=== PATIENT | female | born 1970 | race Caucasian/White ===

== ENCOUNTER 2020-06-24 09:51 | Outpatient (CLI) | payer BC, SELFPAY ==
--- NOTE | ~2020-06-24 | MM_ITS ---
EXAMINATION: MM screening sabas BI w oscar HISTORY: Screening TECHNIQUE: Craniocaudal and mediolateral oblique 3-D tomosynthesis images were obtained and synthetic 2-D images were generated. CAD analysis was submitted and interpreted. COMPARISON: Comparison to multiple prior studies sequentially, with oldest reviewed study dated 05/25. BREAST PARENCHYMAL COMPOSITION: The breasts are extremely dense, which lowers the sensitivity of mamm ography. FINDINGS: There is no evidence of suspicious mass, calcification, or architectural distortion to sugg est malignancy in either breast. There has been no suspicious interval change. IMPRESSION: 1. No mammographic evidence of malignancy. 2. Recommend routine screening mammography in one year. BI-RADS Category 1: Negative Reviewed, dictated and finalized at location A.
== END 2020-06-24 09:52 | disposition home or self-care (01) ==
PROVIDERS: PCP Family Medicine; Visit Provider Family Medicine
DX: Z12.31 Encounter for screening mammogram for malignant neoplasm of breast (principal)
CPT/HCPCS: 77063; 77067

== ENCOUNTER 2021-07-03 00:24 | Day surgery (SDC) | payer BC, SELFPAY ==
[2021-06-18 12:37] VITALS: BMI 19.5
[2021-07-03 08:05] VITALS: BP 123/90; PULSE 94; RESP 16; TEMP 36.1; O2SAT 100; BMI 18.9
[2021-07-03] MEDS: LACTATED RINGERS 1,000 ML 150 ML IV CONT (08:31)
--- NOTE | 2021-07-03 08:34 | P.CONGI_ITS ---
Assessment and Plan Assessment and plan (1) Encounter for screening colonoscopy: Code(s): Z12.11 - Encounter for screening for malignant neoplasm of colon Status: Acute Assessment and Plan: Patient presents for neoplasia screening colonoscopy. Appears to be at average risk for colon polyps. GI Consult Note Consult date/time: 07/03/21 08:34 Reason for consult: Neoplasia screening HPI: Beverley Domingo is a 51 year old female presents for screening colonoscopy. Patient's current weight appetite and bowel movements are normal. She denies abdominal pain. Patient has had no bleeding. Family history is noncontributory. Patient presents today for neoplasia screening colonoscopy. Review of Systems Review of Systems: Review of systems noncontributory. [facility] Family History Family History Father Diabetes mellitus Family history of hypercholesterolemia Hypertension Mother Diabetes mellitus Family history of glaucoma Hypertension Other Family history of cardiovascular disease Social History Social History Second hand tobacco smoke exposure: No Alcohol intake: current Substance use type: does not use Living arrangements: alone Meds Home Medications and Allergies Home Medications Medication Instructions Recorded Confirmed Type melatonin 5 mg capsule 5 mg PO DAILY 06/03/20 07/03/21 History metronidazole 1 % topical gel 1 applic topical DAILY 06/03/20 07/03/21 History (Metrogel) omega-3 fatty acids-fish oil 300 1 cap PO DAILY 06/02/21 07/03/21 History mg-500 mg capsule (Fish Oil) Allergies Allergy/AdvReac Type Severity Reaction Status Date / Time No Known Allergies Allergy Verified 07/03/21 08:16 Vital Signs Vital Signs - 24 hr 07/03/21 08:05 Temperature 97.0 F L Pulse Rate 94 Respiratory Rate 16 Blood Pressure 123/90 Pulse Oximetry 100 Oxygen Delivery Room Air Exam 2 Narrative: Physical exam reveals patient to be alert. Vital signs stable. HEENT exam is unremarkable. Patient is anicteric. Lungs are clear to auscultation and percussion. Heart is without murmur or extra sounds. Abdominal exam bowel sounds present soft nontender with no organomegaly. Digital external rectal exam is normal.
--- NOTE | 2021-07-03 08:42 | P.PNAN_ITS ---
Anes - Initial Pre Proc Eval Procedure: Operation Date: 07/03/21 09:30 Proposed Procedures p Screening Colonoscopy - Missael Bacon MD Date/Time: 07/03/21 08:42 Surgeon: Missael Bacon MD Pre Op Diagnosis: neoplasm screening Patient Data Age: 51 Gender: F Height: 1.7 m Weight: 54.9 kg Last Vital Signs Temp 97.0 F L 07/03/21 08:05 Pulse 94 07/03/21 08:05 Resp 16 07/03/21 08:05 BP 123/90 07/03/21 08:05 Pulse Ox 100 07/03/21 08:05 O2 Del Method Room Air 07/03/21 08:05 Allergies Allergy/AdvReac Type Severity Reaction Status Date / Time No Known Allergies Allergy Verified 07/03/21 08:16 Home Medications Medication Instructions Recorded Confirmed Type melatonin 5 mg capsule 5 mg PO DAILY 06/03/20 07/03/21 History metronidazole 1 % topical gel 1 applic topical DAILY 06/03/20 07/03/21 History (Metrogel) omega-3 fatty acids-fish oil 300 1 cap PO DAILY 06/02/21 07/03/21 History mg-500 mg capsule (Fish Oil) Patient hx anesthesia problems: none Family hx anesthesia problems: none Results Review: All pre-operative results and documents have been reviewed as part of the pre- operative evaluation. [facility] Family History Family History Father Diabetes mellitus Family history of hypercholesterolemia Hypertension Mother Diabetes mellitus Family history of glaucoma Hypertension Other Family history of cardiovascular disease Social History Social History Second hand tobacco smoke exposure: No Alcohol intake: current Substance use type: does not use Living arrangements: alone Anes - Eval Final PreProcedure Day of Procedure 07/03/21 08:42 Patient weight: normal Heart: regular rate and rhythm Lungs: clear to auscultation Neurological: alert and oriented Last oral intake: >/= 8 hours Emergent: no Anesthetic plan: proceed Anesthesia type and monitoring: general GIVS and standard monitoring Results Review: All pre-operative results and documents have been reviewed as part of the pre-operative evaluation. Informed Consent: The patient's anesthetic plan and its attendant risks and benefits were discussed with the patient/family/POA. Questions were solicited and answers provided to the satisfaction of the patient/family/POA.
[2021-07-03 09:32] VITALS: BP 113/88; PULSE 72; RESP 22; O2SAT 100
[2021-07-03 09:42] VITALS: BP 114/75; PULSE 59; RESP 20; O2SAT 100
[2021-07-03 09:52] VITALS: BP 116/76; PULSE 50; RESP 15; O2SAT 100
== END 2021-07-03 09:57 | disposition home or self-care (01) ==
PROVIDERS: PCP Family Medicine; Visit Provider Internal Medicine Gastroenterology
PROC: 0DJD8ZZ Inspection of Lower Intestinal Tract, Via Natural or Artificial Opening Endoscopic (ICD-10-PCS; CPT 45378; principal; 2021-07-03 09:30)
DX: Z12.11 Encounter for screening for malignant neoplasm of colon (principal); K64.8 Other hemorrhoids
CPT/HCPCS: 45378; J2704; J7120

== ENCOUNTER 2022-01-05 10:57 | Outpatient (CLI) | payer BC, SELFPAY ==
--- NOTE | ~2022-01-05 | MM_ITS ---
EXAMINATION: MM screening sabas BI w oscar HISTORY: Screening mammogram, family history of breast cancer in her mother. TECHNIQUE: Craniocaudal and mediolateral oblique 3-D tomosynthesis images were obtained and synthetic 2-D images were generated. CAD analysis was submitted and interpreted. COMPARISON: 06/24/2020, 11/21/2018, 12/07/2016 BREAST PARENCHYMAL COMPOSITION: The breasts are heterogeneously dense, which may obscure small masses . FINDINGS: No suspicious mass, calcification, or architectural distortion are identified in either christina ast to suggest malignancy. There has been no suspicious interval change. IMPRESSION: 1. No mammographic evidence of malignancy. 2. Recommend routine screening mammography in one year. BI-RADS Category 1: Negative Reviewed, dictated and finalized at location A. RVISORY CLERK
== END 2022-01-05 10:58 | disposition home or self-care (01) ==
LOC: ANHIMG 10:58
PROVIDERS: PCP Family Medicine; Visit Provider Family Medicine
DX: Z12.31 Encounter for screening mammogram for malignant neoplasm of breast (principal)
CPT/HCPCS: 77063; 77067

== ENCOUNTER 2022-11-01 10:01 | Outpatient (CLI) | payer BC, SELFPAY ==
[2022-11-01 18:34] LABS: Alanine Aminotransferase 16 U/L (6-35); Albumin Level 4.3 g/dL (3.5-5.1); Alkaline Phosphatase 48 U/L (38-126); Anion Gap 7 mmol/L (8-16); Aspartate Amino Transferase 29 U/L (14-36); Bilirubin,Total 0.8 mg/dL (0.2-1.3); Blood Urea Nitrogen 13 mg/dL (7-17); Calcium 8.9 mg/dL (8.4-10.2); Carbon Dioxide 29 mmol/L (22-30); Chloride 101 mmol/L (98-107); Cholesterol 244 mg/dL (0-200); Estimated Glomerular Filt Rate > 60; Glucose 100 mg/dL (65-110); HDL Direct 69 mg/dL; Potassium 4.3 mmol/L (3.4-5.0); Sodium 137 mmol/L (137-145); Triglycerides 67 mg/dL (<150)
[2022-11-01 18:44] LABS: LDL Cholesterol Direct 123 mg/dL
== END 2022-11-01 10:02 | disposition home or self-care (01) ==
LOC: ANHGOSHLAB 10:02
PROVIDERS: PCP Family Medicine; Visit Provider Family Medicine
DX: Z00.00 Encounter for general adult medical examination without abnormal findings (principal); Z13.220 Encounter for screening for lipoid disorders; Z13.39 Encounter for screening examination for other mental health and behavioral disorders; E78.2 Mixed hyperlipidemia
CPT/HCPCS: 36415; 80053; 80061; 84443

== ENCOUNTER 2023-07-14 09:11 | Outpatient (CLI) | payer BC, SELFPAY ==
--- NOTE | ~2023-07-14 | MM_ITS ---
EXAMINATION: MM screening sabas BI w oscar HISTORY: Screening TECHNIQUE: Craniocaudal and mediolateral oblique 3-D tomosynthesis images were obtained and synthetic 2-D images were generated. CAD analysis was submitted and interpreted. COMPARISON: Comparison to multiple prior studies sequentially, with oldest reviewed study dated 09/25. BREAST PARENCHYMAL COMPOSITION: Dense: The breasts are extremely dense, which lowers the sensitivity of mammography. FINDINGS: There is a new low-density mass in the outer aspect of the right breast on CC view. This is not well-visualized on MLO view. The left breast is stable without evidence for malignancy. IMPRESSION: 1. New right breast mass laterally on CC view. 2. Additional mammographic views and possible breast ultrasound are recommended. BI-RADS Category 0: Incomplete: Needs additional imaging evaluation. Reviewed, dictated and finalized at location B. IMPRESSION: 1. New right breast mass laterally on CC view. 2. Additional mammographic views and possible breast ultrasound are recommended . BI-RADS Category 0: Incomplete: Needs additional imaging evaluation.
== END 2023-07-14 09:12 | disposition home or self-care (01) ==
PROVIDERS: PCP Family Medicine; Visit Provider Family Medicine
DX: Z12.31 Encounter for screening mammogram for malignant neoplasm of breast (principal); R92.8 Other abnormal and inconclusive findings on diagnostic imaging of breast
CPT/HCPCS: 77063; 77067

== ENCOUNTER 2023-07-26 12:34 | Outpatient (CLI) | payer BC, OTHER, SELFPAY ==
--- NOTE | ~2023-07-26 | MMUS_ITS ---
EXAMINATION: MM diagnostic sabas RT w oscar, US breast RT complete HISTORY: Follow-up right breast asymmetry TECHNIQUE: Additional 3-D tomosynthesis images of the right breast were performed and synthetic 2-D i mages were generated. CAD analysis was submitted and interpreted. High resolution complete right mendez st ultrasound was performed. COMPARISON: Comparison to multiple prior studies sequentially, with oldest reviewed study dated 11/08. BREAST PARENCHYMAL COMPOSITION: Dense: The breasts are extremely dense, which lowers the sensitivity of mammography. FINDINGS: MAMMOGRAPHIC FINDINGS: There is a small mass in the upper outer quadrant of the right breast which is obscured by fibrogland ular tissue. There are no suspicious calcifications or architectural distortion. ULTRASOUND: Complete US of all 4 quadrants of the right breast and retroareolar region was reviewed. At 7:00, 2 c m from the nipple, there is a 4 mm cyst. At 8:00 near the nipple there is an oval hypoechoic mass elvis suring 8 mm, likely a complicated cyst. No internal vascularity or posterior features. Also at this l ocation there is a smaller oval hypoechoic mass measuring approximately 6 mm, also likely complicated cyst. At 10:00, 3 cm from the nipple there is a 7 mm cyst. At 11:00, 2 cm from the nipple there is a 5 mm cyst. At 11:00, near the nipple there isr an 8 mm hypoechoic oval parallel oriented mass with l ow level internal echoes, likely complicated cysts. IMPRESSION: 1. Probable benign sonographic right breast abnormalities. 2. Recommend 6 month follow-up Limited right breast ultrasound BI-RADS category 3, probably benign findings. Reviewed, dictated and finalized at location B. IMPRESSION: 1. Probable benign sonographic right breast abnormalities. 2. Recommend 6 month follow-up Limited right breast ultrasound BI-RADS category 3, probably benign findings.
== END 2023-07-26 12:35 | disposition home or self-care (01) ==
LOC: ANHIMG 12:38
PROVIDERS: PCP Family Medicine; Visit Provider Family Medicine
DX: R92.8 Other abnormal and inconclusive findings on diagnostic imaging of breast (principal)
CPT/HCPCS: 76641; 77061; 77065; G0279

== ENCOUNTER 2024-01-25 12:23 | Outpatient (CLI) | payer BC, OTHER, SELFPAY ==
--- NOTE | ~2024-01-25 | MMUS_ITS ---
EXAMINATION: MM diagnostic sabas RT w oscar, US breast RT limited HISTORY: Follow-up right breast masses TECHNIQUE: Additional 3-D tomosynthesis images of the right breast were performed and synthetic 2-D i mages were generated. CAD analysis was submitted and interpreted. High resolution Limited right breas t ultrasound was performed. COMPARISON: Comparison to multiple prior studies sequentially, with oldest reviewed study dated 11/09. BREAST PARENCHYMAL COMPOSITION: Dense: The breasts are extremely dense, which lowers the sensitivity of mammography. FINDINGS: MAMMOGRAPHIC FINDINGS: No new masses, calcifications or architectural distortion in the right breast. There are benign right breast calcifications. No evidence for malignancy. ULTRASOUND: Limited right breast ultrasound: At 7:00, 2 cm from the nipple there is a 3 mm cyst. At 8:00, near th e nipple there is an oval hypoechoic 4 mm mass which is decreased in size compared with prior examina tion now measuring 4 mm, likely benign. At 8:00 near the nipple there is a 3 mm cyst. At 10:00, 1 cm from the nipple there is a 7 mm cyst. At 11:00, 2 cm from the nipple there is a 4 mm cyst. At 11:00 n ear the nipple there is a 3 mm cyst. At 9:00 near the nipple is an irregular shaped hypoechoic mass m easuring 6 x 4 mm without significant change to appearance compared with prior examination. On prior examination was labeled at 8:00 near the nipple. IMPRESSION: 1. Probable benign right breast masses at 9:00 near the nipple and 8:00 near the nipple. 2. Recommend 6 month follow-up bilateral mammogram and Limited right breast ultrasound recommended. BI-RADS category 3, probably benign findings. Reviewed, dictated and finalized at location B. TIVE WRITER IMPRESSION: 1. Probable benign right breast masses at 9:00 near the nipple and 8:00 near th e nipple. 2. Recommend 6 month follow-up bilateral mammogram and Limited right breast ult rasound recommended. BI-RADS category 3, probably benign findings.
== END 2024-01-25 12:24 | disposition home or self-care (01) ==
LOC: ANHIMG 12:26
PROVIDERS: PCP Family Medicine; Visit Provider Nurse Practitioner Family
DX: R92.8 Other abnormal and inconclusive findings on diagnostic imaging of breast (principal)
CPT/HCPCS: 76642; 77061; 77065; G0279

== ENCOUNTER 2024-08-01 10:12 | Outpatient (CLI) | payer BC, OTHER, SELFPAY ==
--- NOTE | ~2024-08-01 | MMUS_ITS ---
EXAMINATION: MM diagnostic sabas BI w oscar, US breast RT limited HISTORY: 6 month follow-up TECHNIQUE: 3-D tomosynthesis images of the breasts were performed and synthetic 2-D images were gener ated. CAD analysis was submitted and interpreted. High resolution limited right breast ultrasound was performed. COMPARISON: 01/27/2024, 07/26/2023, 07/14/2023, 01/05/2022 BREAST PARENCHYMAL COMPOSITION:Dense: The breasts are extremely dense, which lowers the sensitivity o f mammography. FINDINGS: MAMMOGRAPHIC FINDINGS: Mammographic appearance of the breasts is unchanged. No suspicious mass lesion or distortion. No susp icious mesenteric or calcification. ULTRASOUND: Stable anechoic/hypoechoic lesion at the right breast 7:00 position, 2 cm from nipple, measuring 5 mm in diameter. Stable additional 6 mm cyst at the 9:00 position right breast, near the nipple. Stable additional 5 mm cyst at the 10:00 position, 1 cm from the nipple. Stable additional 3 mm cyst at the 11:00 position, 2 cm in the nipple. IMPRESSION: No suspicious findings for malignancy. Stable probable subcentimeter cysts seen in the right breast sonographically. BI-RADS Category 2: Benign finding(s). Reviewed, dictated and finalized at location . IMPRESSION: No suspicious findings for malignancy. Stable probable subcentimeter cysts see n in the right breast sonographically. BI-RADS Category 2: Benign finding(s).
== END 2024-08-01 10:13 | disposition home or self-care (01) ==
LOC: ANHIMG 10:13
PROVIDERS: PCP Family Medicine; Visit Provider Nurse Practitioner Family
DX: R92.8 Other abnormal and inconclusive findings on diagnostic imaging of breast (principal)
CPT/HCPCS: 76642; 77062; 77066; G0279